=== PATIENT | male | born 1975 | race African-American/Black ===

== ENCOUNTER 2018-09-30 11:39 | Emergency (ER) | payer OTHER ==
[~2018-09-30] VITALS: Ht 172.7 cm; Wt 93.0 kg
[2018-09-30 11:54] VITALS: Ht 172.7 cm; Wt 93.0 kg
[2018-09-30 16:06] VITALS: BP 145/91
== END 2018-09-30 16:49 | disposition other institution (70) ==
LOC: ED 11:39
DX: J98.01 Acute bronchospasm (principal)
CPT/HCPCS: J7512; J7613; J7644